=== PATIENT | female | born 2000 | race Caucasian/White ===

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

== ENCOUNTER 2021-10-18 09:33 | Emergency (ER) | payer OTHER ==
--- OUTSIDE RECORDS SUMMARY | 2021-10-18 09:39 | XMS REPORT | Continuity of Care Document ---
:[address] [facility] t Address [address] [place] [id number] Care Team Providers Name Role Phone Blas MEJIA Primary Care Physician Unavailable DENIS Attending Clinician Unavailable Denis HUMPHRIES Attending Clinician Clive Georges MD Attending Clinician CLIVE GEORGES Attending Clinician Unavailable Nurse, General Surgery Attending Clinician Unavailable Pob, Lab Main Attending Clinician Unavailable Doctor Unassigned, Name Attending Clinician Unavailable Brooke YANG Attending Clinician [facility] Attending Clinician Unavailable Jasiel Mcdonald Attending Clinician Yaneth RICHARDSON Attending Clinician Unavailable CLIVE GEORGES Admitting Clinician Unavailable BROOKE Admitting Clinician Unavailable Clive Georges MD Admitting Clinician Brooke YANG Admitting Clinician Yaneth RICHARDSON Admitting Clinician Unavailable Payers Payer Name Policy Type Policy Number Effective Date Expiration Date Yaneth MARIE [employer] [id number] 2019 HEALTH 00:00:00 Advance Directives Directive Decision Effective Termination Comments Source Date Date Healthcare Agents on N/A [facility] FileNameRelationshipHealthcare [facility] Agent Medical RelationshipCommunicationEn[facility] healthcare [phone] (Home) Problems Condition Condition Condition Status Onset Resolution Last Treating Co mments Source Name Details Category Date Date Treatment Clinician Date Mild Mild Disease Active Univers pre-eclamp pre-eclamp 4-22 it y of taye in taye in 00:00: [place] third third 00 Medical trimester trimester Bran ch Liveborn Liveborn Disease Active 2020-0 Unive rs infant, of , of 4-22 it y of berrios berrios 00:00: [place] , , 00 Me dical born in born in [facility] hospital by vaginal by vaginal delivery delivery Encounter Encounter Disease Active 2020-0 Uni vers for for 4-21 ity of elective elective 00:00: [place] induction induction 00 [facility] of labor of labor [place] Morbid Morbid Disease Active 2020-0 Univers obesity obesity 4-13 ity of with body with body 00:00: [place] mass index mass index 00 Me dical of of Branch 40.0-49.9 40.0-49.9 Excessive Excessive Disease Active 2020-0 Uni vers weight weight 4-07 ity of gain gain 00:00: [place] during during 00 Medical Bran ch in third in third trimester trimester Obesity Obesity Disease Active 2020-0 Univers (BMI (BMI 1-27 ity of 30-39.9) 30-39.9) 00:00: [place] 00 [facility] 27 weeks 27 weeks Disease Active 2020-0 Unive rs gestation gestation 1-27 ity of of of 00:00: [place] 00 [facility] 37 weeks 37 weeks Disease Active 2020-0 Unive rs gestation gestation 1-27 ity of of of 00:00: [place] 00 [facility] Needs flu Needs flu Disease Active 2020-0 Uni vers shot shot 1-27 ity of 00:00: [place] 00 [facility] Need for Need for Disease Active 2020-0 Unive rs Tdap Tdap 1-27 ity of vaccinatio vaccinatio 00:[place] 00 [facility] 38 weeks 38 weeks Disease Active 2020-0 Unive rs gestation gestation 1-27 ity of of of 00:00: [place] 00 [facility] 39 weeks 39 weeks Disease Active 2020-0 Unive rs gestation gestation 1-27 ity of of of 00:00: [place] 00 [facility] 40 weeks 40 weeks Disease Active 2020-0 Unive rs gestation gestation 1-27 ity of of of 00:00: [place] 00 [facility] 32 weeks 32 weeks Disease Active 2020-0 Unive rs gestation gestation 1-27 ity of of of 00:00: [place] 00 [facility] History of History of Disease Active Overview : Univers depression depression 10-16 Reports i ty of 00:00: resolved 00 , stopped Medical meds in Branch 2017 Supervisio Supervisio Disease Active U nivers n of n of 10-16 ity of high-risk high-risk 00:00: Melia pelayo 00 [facility] with with Branch insufficie insufficie nt nt care care Over Over Disease Active 2017-10 Univers weight weight 0-09 ity of 00:00: [place] 00 [facility] Allergies, Adverse Reactions, Alerts Allergy Allergy Status Severity Reaction(s) Onset Inactive Treating Comm ents Source Name Type Date Date Clinician NO KNOWN Drug Active Univers ALLERGIE Class ity of [facility] Social History Social Habit Start Date Stop Date Quantity Comments Source ASSERTION 2019-05-06 [facility] 00:00:00 [facility] Exposure to Not sure [facility] SARS-CoV-2 (event) Medica l [place] Sex Assigned At [facility] Medical Branch Alcohol intake 2020-02-02 2020-02-02 [facility] 00:00:00 00:00:00 [facility] Smoking Status Start Date Stop Date Source Never smoker [facility] acute hospital Medications Ordered Filled Start Stop Current Ordering Indication Dosage Frequency Signature Comments Components Source Medication Medication Date Date Medication? Clinician (SIG) Name Name norgestimat Yes [id number] 1{tbl} Take 1 Univers e-ethinyl 6-11 tablet by ity o f estradiol 00:00: mouth [place] 0.25-35 00 daily. Medical mg-mcg per Branch tablet 2019- Yes [id number] 1{tbl} Take 1 Univers vitamin 4-23 102 tablet by ity of w/FA tablet 00:00: mouth [place] 00 daily. Medical Branch docusate 2019- Yes [id number] 240mg Take 1 Univers calcium 240 4-23 102 capsule by it y of mg capsule 00:00: mouth [place] 00 daily as Medical needed for Branch Constipati on. ferrous 2020-0 Yes [id number] 325mg Take 1 Univers sulfate 325 4-23 102 tablet by ity of mg (65 mg 00:00: mouth 2 [place] iron) 00 (two) Medical tablet times Branch daily. ibuprofen 2020- Yes [id number] 600mg Take 1 Univers 600 mg 4-23 102 tablet by ity of tablet 00:00: mouth [place] 00 every 6 Medical (six) Branch hours as needed for Pain (scale 1-3) or Pain (scale 4-6) (Pain). Take with food or milk. 2020-0 Yes [id number] 1{tbl} Take 1 Univers vitamin 4-23 102 tablet by ity of w/FA tablet 00:00: mouth [place] 00 daily. Medical Branch docusate 2020-0 Yes [id number] 240mg Take 1 Univers calcium 240 4-23 102 capsule by it y of mg capsule 00:00: mouth [place] 00 daily as Medical needed for Branch Constipati on. ferrous 2020-0 Yes [id number] 325mg Take 1 Univers sulfate 325 4-23 102 tablet by ity of mg (65 mg 00:00: mouth 2 [place] iron) 00 (two) Medical tablet times Branch daily. ibuprofen 2019-0 Yes [id number] 600mg Take 1 Univers 600 mg 4-23 102 tablet by ity of tablet 00:00: mouth [place] 00 every 6 Medical (six) Branch hours as needed for Pain (scale 1-3) or Pain (scale 4-6) (Pain). Take with food or milk. 2019-0 Yes [id number] 1{tbl} Take 1 Univers vitamin 4-23 102 tablet by ity of w/FA tablet 00:00: mouth [place] 00 daily. Medical Branch docusate 2019-0 Yes [id number] 240mg Take 1 Univers calcium 240 4-23 102 capsule by it y of mg capsule 00:00: mouth [place] 00 daily as Medical needed for Branch Constipati on. ferrous 2020-0 Yes [id number] 325mg Take 1 Univers sulfate 325 4-23 102 tablet by ity of mg (65 mg 00:00: mouth 2 [place] iron) 00 (two) Medical tablet times Branch daily. ibuprofen 2020-0 Yes [id number] 600mg Take 1 Univers 600 mg 4-23 102 tablet by ity of tablet 00:00: mouth [place] 00 every 6 Medical (six) Branch hours as needed for Pain (scale 1-3) or Pain (scale 4-6) (Pain). Take with food or milk. 2019-0 Yes [id number] 1{tbl} Take 1 Univers vitamin 4-23 102 tablet by ity of w/FA tablet 00:00: mouth [place] 00 daily. Medical Branch docusate 2020-0 Yes [id number] 240mg Take 1 Univers calcium 240 4-23 102 capsule by it y of mg capsule 00:00: mouth [place] 00 daily as Medical needed for Branch Constipati on. ferrous 2020-0 Yes [id number] 325mg Take 1 Univers sulfate 325 4-23 102 tablet by ity of mg (65 mg 00:00: mouth 2 [place] iron) 00 (two) Medical tablet times Branch daily. ibuprofen 2020-0 Yes [id number] 600mg Take 1 Univers 600 mg 4-23 102 tablet by ity of tablet 00:00: mouth [place] 00 every 6 Medical (six) Branch hours as needed for Pain (scale 1-3) or Pain (scale 4-6) (Pain). Take with food or milk. rho(D) 2019-0 Yes 300ug 300 mcg, Univer s immune 4- Intramuscu ity of globulin 21:14: lar, ONCE, [place] (RHOGAM) 13 For 1 Medical syringe 300 dose, Branch mcg Conditiona l, Routine ondansetron 2019-0 Yes 4mg 4 mg, Slow Univers (ZOFRAN - IV Push, ity of (PF)) 21:14: Q8HPRN, [place] injection 4 09 Starting Medi karen mg Wed Branch 01/28/20 at 1614, Until Discontinu ed, Routine, Nausea and Vomiting (N/V) simethicone 2020-0 Yes 160mg 160 mg, Un andreas (GAS RELIEF - Oral, ity of (SIMETHICON 21:14: PC+HSPRN, [place] E)) 09 Starting Medical chewable Wed Branch tablet 160 01/28/20 at mg 1614, Until Discontinu ed, Routine, Gas magnesium 2020-0 Yes 30mL 30 mL, Univer s hydroxide -22 Oral, ity of (MILK OF 21:14: QDAILYPRN, [place] MAGNESIA) 09 Starting Medica l 400 mg/5 mL Wed Branch suspension 01/28/20 at 30 mL 1614, Until Discontinu ed, Routine, Constipati on HYDROcodone 2020-0 Yes 1{tbl} 1 tablet, Univers -acetaminop - Oral, ity of hen (NORCO 21:14: Q6HPRN, [place] 5) 5-325 mg 08 Starting Medi karen tablet 1 Wed Branch tablet 01/28/20 at 1614, Until Discontinu ed, Routine, Pain (scale 7-10) ibuprofen 2020-0 Yes 600mg 600 mg, Univ ers (IBU) - Oral, ity of tablet 600 21:14: Q6HPRN, [place] mg 08 Starting Medical Wed Branch 01/28/20 at 1614, Until Discontinu ed, Routine, Pain (scale 4-6) acetaminoph 2020-0 Yes 650mg 650 mg, Un andreas en 01-27 Oral, ity of (TYLENOL) 21:14: Q6HPRN, [place] tablet 650 08 Starting Medic al mg Wed Branch 01/28/20 at 1614, Until Discontinu ed, Routine, Pain (scale 1-3) diphenhydrA 2020-0 Yes 25mg 25 mg, Univ ers MINE 01-27 Oral, ity of (BENADRYL) 21:14: Q6HPRN, [place] tablet 25 08 Starting Medica l mg Wed Branch 01/28/20 at 1614, Until Discontinu ed, Routine, Sleep, Itching docusate 2020-0 Yes 240mg 240 mg, Unive rs calcium 01-27 Oral, ity of (SURFAK) 21:14: QDAILYPRN, [place] capsule 240 08 Starting Medi karen mg Wed Branch 01/28/20 at 1614, Until Discontinu ed, Routine, Constipati on benzocaine- 2020-0 Yes Topical, Un andre[place] menthol 01-27 PRN, ity of (DERMOPLAST 21:14: [place] 20-0.5 % 08 Sun Medical topical 01/28/20 at Branch spray 1614, Until Discontinu ed, Routine, Perineum discomfort tranexamic 2020-0 2020- No 1000mg 1,000 mg, Univers acid 01-27 IV ity of (CYKLOKAPRO 19:30: 21:14 Piggyback, [place] N) 1,000 mg 00 :14 ONCE, 1 Medic al in NaCl dose, Wed Branch 0.9% (NS) 01/28/20 at 100 mL 1430, 100 piggyback mL diphenoxyla 2020-0 2020- No 1{tbl} 1 tablet, Univers te-atropine 01-27 Oral, ity of (LOMOTIL) 19:00: 18:03 ONCE, 1 [place] 2.5-0.025 00 :00 dose, Wed Medic al mg per 01/28/20 at Branch tablet 1 1400, tablet Routine lactated 2020-0 2020- No 1000mL at 999 Univ ers ringers IV 01-27-22 mL/hr, ity of infusion 18:00: 17:55 1,000 mL, [place] 1,000 mL 00 :00 IV Medical Infusion, Branch ONCE, 1 dose, 01/28/20 at 1300, STAT oxytocin 2020-0 2020- No at 125 Univer s (PITOCIN) 01-27-22 mL/hr, IV ity of 40 Units in 17:45: 17:45 Infusion, [place] lactated 00 :00 ONCE, 1 Medical ringers dose, Sun Branch 1,000 mL IV 01/28/20 at infusion 1245, Routine carboprost 2020-0 2020- No 250ug 250 mcg, U nivers (HEMABATE) 01-27 Intramuscu it y of injection 17:30: 17:26 lar, ONCE, [place] 250 mcg 00 :00 1 dose, Medical Wed Branch 01/28/20 at 1230, Routine oxytocin 2020-0 2020- No at 999 Univer s (PITOCIN) 01-27-22 mL/hr, IV ity of 40 Units in 17:25: 22:00 Infusion, [place] lactated 00 :08 CONTINUOUS Medic al ringers , Starting Branch 1,000 mL IV Wed infusion 01/28/20 at 1230, Until Sun01/28/20 at 1700, Routine LR 1000 mL 2020-0 2020- No 4mU/min at 12 Un andreas + oxytocin 01-26-22 mL/hr, IV ity of 20 units IV 17:45: 21:14 Infusion, [place] Solution 00 :14 CONTINUOUS Medic al , Starting Branch 01/27/20 at 1245, Until Sun01/28/20 at 1614, ANDREA D5W-LR IV 2020-0 2020- No 1000mL at 125 Uni vers infusion 01-26 04-22 mL/hr, IV ity o f 1,000 mL 17:45: 21:14 Infusion, [place] 00 :14 CONTINUOUS Medical , Starting Branch 01/27/20 at 1245, Until Sun01/28/20 at 1614, Routine FENTanyl PF 2019- 2020- No 100ug 100 mcg, Univers (SUBLIMAZE 01-26 Slow IV ity o f (PF)) 17:39: 21:14 Push, [place] injection 27 :14 Q1HPRN, Medical 100 mcg Starting Branch 01/27/20 at 1239, Until Sun01/28/20 at 1614, Routine, contractio n pain without an epidural and SVE < 8 cm and Cat I strip proMETHazin 2020- No 25mg 25 mg, IV Univers e 01-26 Piggyback, ity of (PHENERGAN) 17:39: 21:14 Q6HPRN, [place] 25 mg in 27 :14 Starting Medical NaCl 0.9% Tue Branch (NS) 50 mL 01/27/20 at piggyback 1239, Until Sun01/28/20 at 1614, 50 mL lactated 2019- No 500mL at 999 Unive rs ringers IV 01-26 mL/hr, 500 it y of infusion 17:39: 21:14 mL, IV [place] 500 mL 27 :14 Infusion, Medical PRN - SEE Branch INSTRUCTIO NS, Starting 01/27/20 at 1239, Until Sun01/28/20 at 1614, Routine PNV 67-iron 2019-0 Yes [id number] 1{each} Take 1 Univers ps-folate - 09 Each by ity of no.1-dha 00:00: mouth [place] (VITAFOL 00 daily. Medical ULTRA) 29 Branch mg iron- 1 mg-200 mg Cap PNV 67-iron 2020-0 2020- No [id number] 1{each} Take 1 Univers ps-folate -06 08- 09 Each by ity of no.1-dha 00:00: 00:00 mouth [place] (VITAFOL 00 :00 daily. Medical ULTRA) 29 Branch mg iron- 1 mg-200 mg Cap [id number]- 2019-1 Yes [id number] 1{tbl} Take 1 Univers iron 2-27 tablet by ity of fum-FA-om3- 00:00: mouth [place] dha 00 daily. Medical ( Branch PLUS DHA) 27 mg iron-1 mg -312 mg-250 mg Cmpk [id number]- 2019-1 Yes [id number] 1{tbl} Take 1 Univers iron 2-27 tablet by ity of fum-FA-om3- 00:00: mouth [place] dha 00 daily. Medical ( Branch PLUS DHA) 27 mg iron-1 mg -312 mg-250 mg Cmpk proMETHazin 2018-10 Yes [id number] 25mg Take 1 Univers e 25 mg 2-27 tablet by ity of tablet 00:00: mouth [place] 00 every 6 Medical (six) Branch hours as needed for Nausea and Vomiting (N/V). 2018-10 Yes [id number] 1{tbl} Take 1 Univers iron 2-27 tablet by ity of fum-FA-om3- 00:00: mouth [place] dha 00 daily. Medical ( Branch PLUS DHA) 27 mg iron-1 mg -312 mg-250 mg Cmpk 2018-10 Yes [id number] 1{tbl} Take 1 Univers iron 2-27 tablet by ity of fum-FA-om3- 00:00: mouth [place] dha 00 daily. Medical ( Branch PLUS DHA) 27 mg iron-1 mg -312 mg-250 mg Cmpk 2018-10 Yes [id number] 1{tbl} Take 1 Univers iron 2-27 tablet by ity of fum-FA-om3- 00:00: mouth [place] dha 00 daily. Medical ( Branch PLUS DHA) 27 mg iron-1 mg -312 mg-250 mg Cmpk 2018-10 Yes [id number] 1{tbl} Take 1 Univers iron 2-27 tablet by ity of fum-FA-om3- 00:00: mouth [place] dha 00 daily. Medical ( Branch PLUS DHA) 27 mg iron-1 mg -312 mg-250 mg Cmpk 2018-10 Yes [id number] 1{tbl} Take 1 Univers iron 2-27 tablet by ity of fum-FA-om3- 00:00: mouth [place] dha 00 daily. Medical ( Branch PLUS DHA) 27 mg iron-1 mg -312 mg-250 mg Cmpk 2018-10 Yes [id number] 1{tbl} Take 1 Univers iron 2-27 tablet by ity of fum-FA-om3- 00:00: mouth [place] dha 00 daily. Medical ( Branch PLUS DHA) 27 mg iron-1 mg -312 mg-250 mg Cmpk 2018-10 Yes [id number] 1{tbl} Take 1 Univers iron 2-27 tablet by ity of fum-FA-om3- 00:00: mouth [place] dha 00 daily. Medical ( Branch PLUS DHA) 27 mg iron-1 mg -312 mg-250 mg Cmpk 2018-10 Yes [id number] 1{tbl} Take 1 Univers iron 2-27 tablet by ity of fum-FA-om3- 00:00: mouth [place] dha 00 daily. Medical ( Branch PLUS DHA) 27 mg iron-1 mg -312 mg-250 mg Cmpk 2018-10 Yes [id number] 1{tbl} Take 1 Univers iron 2-27 tablet by ity of fum-FA-om3- 00:00: mouth [place] dha 00 daily. Medical ( Branch PLUS DHA) 27 mg iron-1 mg -312 mg-250 mg Cmpk 2018-10 Yes [id number] 1{tbl} Take 1 Univers iron 2-27 tablet by ity of fum-FA-om3- 00:00: mouth [place] dha 00 daily. Medical ( Branch PLUS DHA) 27 mg iron-1 mg -312 mg-250 mg Cmpk 2018-10 Yes [id number] 1{tbl} Take 1 Univers iron 2-27 tablet by ity of fum-FA-om3- 00:00: mouth [place] dha 00 daily. Medical ( Branch PLUS DHA) 27 mg iron-1 mg -312 mg-250 mg Cmpk 2018-10 Yes [id number] 1{tbl} Take 1 Univers iron 2-27 tablet by ity of fum-FA-om3- 00:00: mouth [place] dha 00 daily. Medical ( Branch PLUS DHA) 27 mg iron-1 mg -312 mg-250 mg Cmpk 2018-10 Yes [id number] 1{tbl} Take 1 Univers iron 2-27 tablet by ity of fum-FA-om3- 00:00: mouth [place] dha 00 daily. Medical ( Branch PLUS DHA) 27 mg iron-1 mg -312 mg-250 mg Cmpk 2018-10 Yes [id number] 1{tbl} Take 1 Univers iron 2-27 tablet by ity of fum-FA-om3- 00:00: mouth [place] dha 00 daily. Medical ( Branch PLUS DHA) 27 mg iron-1 mg -312 mg-250 mg Cmpk 2018-10 Yes [id number] 1{tbl} Take 1 Univers iron 2-27 tablet by ity of fum-FA-om3- 00:00: mouth [place] dha 00 daily. Medical ( Branch PLUS DHA) 27 mg iron-1 mg -312 mg-250 mg Cmpk 2018-10 Yes [id number] 1{tbl} Take 1 Univers iron 2-27 tablet by ity of fum-FA-om3- 00:00: mouth [place] dha 00 daily. Medical ( Branch PLUS DHA) 27 mg iron-1 mg -312 mg-250 mg Cmpk 2018-10 Yes [id number] 1{tbl} Take 1 Univers iron 2-27 tablet by ity of fum-FA-om3- 00:00: mouth [place] dha 00 daily. Medical ( Branch PLUS DHA) 27 mg iron-1 mg -312 mg-250 mg Cmpk 2018-10 Yes [id number] 1{tbl} Take 1 Univers iron 2-27 tablet by ity of fum-FA-om3- 00:00: mouth [place] dha 00 daily. Medical ( Branch PLUS DHA) 27 mg iron-1 mg -312 mg-250 mg Cmpk 2018-10 Yes [id number] 1{tbl} Take 1 Univers iron 2-27 tablet by ity of fum-FA-om3- 00:00: mouth [place] dha 00 daily. Medical ( Branch PLUS DHA) 27 mg iron-1 mg -312 mg-250 mg Cmpk [id number] 2020- No [id number] 1{tbl} Take 1 Univers iron 2-27 04-23 tablet by ity of fum-FA-om3- 00:00: 00:00 [place] dha 00 :00 daily. Medical ( Branch PLUS DHA) 27 mg iron-1 mg -312 mg-250 mg Cmpk proMETHazin 2018-10 2020- No [id number] 25mg Take 1 Univers e 25 mg 2-27 01-27 tablet by ity of tablet 00:00: 00:00 mouth [place] 00 :00 every 6 Medical (six) Branch hours as needed for Nausea and Vomiting (N/V). norgestimat Yes [id number] 1{tbl} Take 1 Univers e-ethinyl 5-06 tablet by ity o f estradiol 00:00: mouth [place] 0.25-35 00 daily. Medical mg-mcg per Branch tablet norgestimat 2020- No [id number] 1{tbl} Take 1 Univers e-ethinyl 5-06 -27 tablet by ity of estradiol 00:00: 00:00 mouth [place] 0.25-35 00 :00 daily. Medical mg-mcg per Branch tablet Immunizations Ordered Filled Immunization Date Status Comments [facility] e Immunization Name Name TDAP (ADACEL) 2019-11-03 Completed University of VACCINE 00:00:00 [facility] Influenza Virus 2019-11-03 Completed Universit y of Vaccine Quad .5 mL 00:00:00 [place] Medical IM 6+ MO Branch TDAP (ADACEL) 2019-11-03 Completed University of VACCINE 00:00:00 [facility] Influenza Virus 2019-11-03 Completed Universit y of Vaccine Quad .5 mL 00:00:00 [facility] IM 6+ MO Branch TDAP (ADACEL) 2019-11-03 Completed University of VACCINE 00:00:00 [facility] Influenza Virus 2019-11-03 Completed Universit y of Vaccine Quad .5 mL 00:00:00 [place] Medical IM 6+ MO Branch TDAP (ADACEL) 2019-11-03 Completed University of VACCINE 00:00:00 [facility] Influenza Virus 2019-11-03 Completed Universit y of Vaccine Quad .5 mL 00:00:00 [place] Medical IM 6+ MO Branch TDAP (ADACEL) 2019-11-03 Completed University of VACCINE 00:00:00 [facility] Influenza Virus 2019-11-03 Completed Universit y of Vaccine Quad .5 mL 00:00:00 [place] Medical IM 6+ MO Branch TDAP (ADACEL) 2019-11-03 Completed University of VACCINE 00:00:00 [facility] Influenza Virus 2019-11-03 Completed Universit y of Vaccine Quad .5 mL 00:00:00 [place] Medical IM 6+ MO Branch TDAP (ADACEL) 2019-11-03 Completed University of VACCINE 00:00:00 [facility] Influenza Virus 2019-11-03 Completed Universit y of Vaccine Quad .5 mL 00:00:00 [place] Medical IM 6+ MO Branch TDAP (ADACEL) 2019-11-03 Completed University of VACCINE 00:00:00 [facility] Influenza Virus 2019-11-03 Completed Universit y of Vaccine Quad .5 mL 00:00:00 [place] Medical IM 6+ MO Branch TDAP (ADACEL) 2019-11-03 Completed University of VACCINE 00:00:00 [facility] Influenza Virus 2019-11-03 Completed Universit y of Vaccine Quad .5 mL 00:00:00 [place] Medical IM 6+ MO Branch TDAP (ADACEL) 2019-11-03 Completed University of VACCINE 00:00:00 [facility] Influenza Virus 2019-11-03 Completed Universit y of Vaccine Quad .5 mL 00:00:00 [place] Medical IM 6+ MO Branch TDAP (ADACEL) 2019-11-03 Completed University of VACCINE 00:00:00 [facility] Influenza Virus 2019-11-03 Completed Universit y of Vaccine Quad .5 mL 00:00:00 [place] Medical IM 6+ MO Branch TDAP (ADACEL) 2019-11-03 Completed University of VACCINE 00:00:00 [facility] Influenza Virus 2019-11-03 Completed Universit y of Vaccine Quad .5 mL 00:00:00 [place] Medical IM 6+ MO Branch TDAP (ADACEL) 2019-11-03 Completed University of VACCINE 00:00:00 [facility] Influenza Virus 2019-11-03 Completed Universit y of Vaccine Quad .5 mL 00:00:00 [place] Medical IM 6+ MO Branch TDAP (ADACEL) 2019-11-03 Completed University of VACCINE 00:00:00 [facility] Influenza Virus 2019-11-03 Completed Universit y of Vaccine Quad .5 mL 00:00:00 [place] Medical IM 6+ MO Branch TDAP (ADACEL) 2019-11-03 Completed University of VACCINE 00:00:00 [facility] Influenza Virus 2019-11-03 Completed Universit y of Vaccine Quad .5 mL 00:00:00 [place] Medical IM 6+ MO Branch TDAP (ADACEL) 2019-11-03 Completed University of VACCINE 00:00:00 [facility] Influenza Virus 2019-11-03 Completed Universit y of Vaccine Quad .5 mL 00:00:00 [place] Medical IM 6+ MO Branch TDAP (ADACEL) 2019-11-03 Completed University of VACCINE 00:00:00 [facility] Influenza Virus 2019-11-03 Completed Universit y of Vaccine Quad .5 mL 00:00:00 [place] Medical IM 6+ MO Branch TDAP (ADACEL) 2019-11-03 Completed University of VACCINE 00:00:00 [facility] Influenza Virus 2019-11-03 Completed Universit y of Vaccine Quad .5 mL 00:00:00 [place] Medical IM 6+ MO Branch TDAP (ADACEL) 2019-11-03 Completed University of VACCINE 00:00:00 [facility] Influenza Virus 2019-11-03 Completed Universit y of Vaccine Quad .5 mL 00:00:00 [place] Medical IM 6+ MO Branch TDAP (ADACEL) 2019-11-03 Completed University of VACCINE 00:00:00 [facility] Influenza Virus 2019-11-03 Completed Universit y of Vaccine Quad .5 mL 00:00:00 [place] Medical 6+ MO Branch TDAP (ADACEL) 2019-11-03 Completed University of VACCINE 00:00:00 [facility] Influenza Virus 2019-11-03 Completed Universit y of Vaccine Quad .5 mL 00:00:00 [place] Medical IM 6+ MO Branch TDAP (ADACEL) 2019-11-03 Completed University of VACCINE 00:00:00 [facility] Influenza Virus 2019-11-03 Completed Universit y of Vaccine Quad .5 mL 00:00:00 [facility] IM 6+ MO Branch TDAP (ADACEL) 2019-11-03 Completed University of VACCINE 00:00:00 [facility] Influenza Virus 2019-11-03 Completed Universit y of Vaccine Quad .5 mL 00:00:00 [place] Medical IM 6+ MO Branch TDAP (ADACEL) 2019-11-03 Completed University of VACCINE 00:00:00 [facility] Influenza Virus 2019-11-03 Completed Universit y of Vaccine Quad .5 mL 00:00:00 [place] Medical IM 6+ MO Branch Vital Signs Vital Name Observation Time Observation Value Comments Source Systolic blood 2020-01-29 17:00:00 128 mm[Hg] Univer sity of pressure [facility] Diastolic blood 2020-01-29 17:00:00 69 mm[Hg] Unive rsity of pressure [facility] Heart rate 2020-01-29 17:00:00 71 /min Universi ty of [facility] Body temperature 2020-01-29 17:00:00 37.06 Nina Univ ersity of [place] [facility] Respiratory rate 2020-01-29 17:00:00 18 /min Univ ersity of [place] [facility] Oxygen saturation in 2020-01-29 12:30:00 100 /min University of Arterial blood by [facility] Pulse oximetry Branch Body height 2020-01-27 17:43:00 160 cm [facility] Body weight 2020-01-27 17:43:00 105.416 kg [facility] BMI 2020-01-27 17:43:00 41.17 kg/m2 [facility] Systolic blood 2020-01-29 17:00:00 128 mm[Hg] [facility] Diastolic blood 2020-01-29 17:00:00 69 mm[Hg] [facility] Heart rate 2020-01-29 17:00:00 71 /min [facility] Body temperature 2020-01-29 17:00:00 37.06 Nina [facility] Respiratory rate 2020-01-29 17:00:00 18 /min [facility] Oxygen saturation in 2020-01-29 12:30:00 100 /min [facility] of Arterial blood by [facility] Pulse oximetry Branch Body height 2020-01-27 17:43:00 160 cm [facility] Body weight 2020-01-27 17:43:00 105.416 kg [facility] BMI 2020-01-27 17:43:00 41.17 kg/m2 [facility] Systolic blood 2020-01-26 21:07:00 123 mm[Hg] [facility] Diastolic blood 2020-01-26 21:07:00 73 mm[Hg] [facility] Heart rate 2020-01-26 21:07:00 94 /min [facility] Body temperature 2020-01-26 21:07:00 36.72 Nina [facility] Respiratory rate 2020-01-26 21:07:00 18 /min [facility] Body height 2020-01-26 21:07:00 160 cm [facility] Body weight 2020-01-26 21:07:00 105.96 kg [facility] BMI 2020-01-26 21:07:00 41.38 kg/m2 [facility] Systolic blood 2020-01-26 21:07:00 123 mm[Hg] [facility] Diastolic blood 2020-01-26 21:07:00 73 mm[Hg] [facility] Heart rate 2020-01-26 21:07:00 94 /min [facility] Body temperature 2020-01-26 21:07:00 36.72 Nina [facility] Respiratory rate 2020-01-26 21:07:00 18 /min [facility] Body height 2020-01-26 21:07:00 160 cm [facility] Body weight 2020-01-26 21:07:00 105.96 kg [facility] BMI 2020-01-26 21:07:00 41.38 kg/m2 [facility] Body temperature 2020-01-26 15:07:00 36.67 Nina [facility] Body temperature 2020-01-26 15:07:00 36.67 Nina [facility] Systolic blood 2020-01-19 19:57:00 117 mm[Hg] [facility] Diastolic blood 2020-01-19 19:57:00 75 mm[Hg] [facility] Heart rate 2020-01-19 19:57:00 97 /min [facility] Body temperature 2020-01-19 19:57:00 36.83 Nina [facility] Respiratory rate 2020-01-19 19:57:00 18 /min [facility] Body height 2020-01-19 19:57:00 160 cm [facility] Body weight 2020-01-19 19:57:00 105.053 kg [facility] BMI 2020-01-19 19:57:00 41.03 kg/m2 [facility] Systolic blood 2020-01-12 21:16:00 122 mm[Hg] [facility] Diastolic blood 2020-01-12 21:16:00 73 mm[Hg] [facility] Heart rate 2020-01-12 21:16:00 89 /min [facility] Body temperature 2020-01-12 21:16:00 36.89 Nina [facility] Respiratory rate 2020-01-12 21:16:00 18 /min [facility] Body height 2020-01-12 21:16:00 160 cm [facility] Body weight 2020-01-12 21:16:00 104.327 kg [facility] BMI 2020-01-12 21:16:00 40.74 kg/m2 [facility] Systolic blood 2019-12-29 19:41:00 118 mm[Hg] [facility] Diastolic blood 2019-12-29 19:41:00 70 mm[Hg] [facility] Heart rate 2019-12-29 19:41:00 79 /min [facility] Body temperature 2019-12-29 19:41:00 36.5 Nina [facility] Respiratory rate 2019-12-29 19:41:00 18 /min [facility] Body height 2019-12-29 19:41:00 160 cm [facility] Body weight 2019-12-29 19:41:00 100.699 kg [facility] BMI 2019-12-29 19:41:00 39.33 kg/m2 [facility] Systolic blood 2019-12-20 04:43:00 105 mm[Hg] [facility] Diastolic blood 2019-12-20 04:43:00 49 mm[Hg] [facility] Heart rate 2019-12-20 04:43:00 86 /min [facility] Respiratory rate 2019-12-20 04:43:00 18 /min [facility] Body temperature 2019-12-20 02:45:00 36.72 Nina [facility] Body height 2019-12-20 02:45:00 160 cm [facility] Body weight 2019-12-20 02:45:00 99.973 kg [facility] BMI 2019-12-20 02:45:00 39.04 kg/m2 [facility] ty of [facility] Oxygen saturation in 2019-12-20 02:45:00 100 /min University Arterial blood by [facility] Pulse oximetry Branch Systolic blood 2019-12-15 18:04:00 126 mm[Hg] [facility] [place] [facility] [place] Diastolic blood 2019-12-15 18:04:00 73 mm[Hg] Unive rsity of pressure [facility] Heart rate 2019-12-15 18:04:00 86 /min [facility] ty of [facility] Body temperature 2019-12-15 18:04:00 36.28 Nina Univ ersity of [facility] Respiratory rate 2019-12-15 18:04:00 18 /min Univ ersity of [facility] Body height 2019-12-15 18:04:00 160 cm [facility] Body weight 2019-12-15 18:04:00 99.791 kg [facility] [place] [facility] BMI 2019-12-15 18:04:00 38.97 kg/m2 [facility] ty of [facility] Systolic blood 2019-12-04 21:20:00 121 mm[Hg] Univer sity of pressure [facility] Diastolic blood 2019-12-04 21:20:00 77 mm[Hg] Unive rsity of pressure [facility] Heart rate 2019-12-04 21:20:00 78 /min [facility] [place] [facility] Body temperature 2019-12-04 21:20:00 36.39 Nina [facility] of [facility] Respiratory rate 2019-12-04 21:20:00 18 /min Univ ersity of [facility] Body height 2019-12-04 21:20:00 160 cm [facility] Body weight 2019-12-04 21:20:00 98.249 kg [facility] BMI 2019-12-04 21:20:00 38.37 kg/m2 [facility] of [facility] Systolic blood 2019-12-01 20:17:00 123 mm[Hg] [facility] [place] [facility] Diastolic blood 2019-12-01 20:17:00 69 mm[Hg] Unive rsity of pressure [facility] Heart rate 2019-12-01 20:17:00 87 /min [facility]i ty of [facility] Body temperature 2019-12-01 20:17:00 36.78 Nina [facility] [address] of [facility] Respiratory rate 2019-12-01 20:17:00 16 /min [facility] ersity of [facility] Body height 2019-12-01 20:17:00 160 cm [facility] [place] [facility] [place] Body weight 2019-12-01 20:17:00 97[address] [facility] BMI 2019-12-01 20:17:00 37.94 kg/m2 [facility] of [facility] Systolic blood 2019-11-03 21:07:00 127 mm[Hg] Univer sity of pressure [facility] Diastolic blood 2019-11-03 21:07:00 75 mm[Hg] [facility] Heart rate 2019-11-03 21:07:00 89 /min [facility]i ty of [facility] Body temperature 2019-11-03 21:07:00 36.72 Nina [facility] 2019-11-03 21:07:00 18 /min [facility] Body height 2019-11-03 21:07:00 160 cm [facility] [place] [facility] [place] Body weight 2019-11-03 21:07:[address] [facility] BMI 2019-11-03 21:07:00 36.31 kg/m2 Universi ty [facility] Procedures Procedure Date / Time Performing Clinician Source Performed CBC WITH DIFFERENTIAL 2020-01-29 09:23:00 Estrella Georges [facility] VENOUS CORD GAS 2020-01-28 17:29:00 Estrella Georges [facility] URINALYSIS 2020-01-28 16:03:00 Estrella Georges [facility] PROTEIN CREAT RATIO 2020-01-28 16:03:00 Estrella Georges [facility] URINE RANDOM [facility] SGOT (ASPARTATE AMINO 2020-01-28 14:38:00 Estrella Georges [facility] TRANSFER) Medical Branch CREATININE 2020-01-28 14:38:00 Estrella Georges [facility] ALANINE AMINO 2020-01-28 14:38:00 Estrella Georges [facility] TRANSFERASE(SGPT Medical Branch LACTATE DEHYDROGENASE 2020-01-28 14:38:00 Georges, Estrella [facility] URIC ACID 2020-01-28 14:38:00 Georges [facility] CBC WITH DIFFERENTIAL 2020-01-28 14:38:00 Georges [facility] CBC WITH DIFFERENTIAL 2020-01-27 18:11:00 Georges [facility] HEPATITIS B SURFACE 2020-01-27 18:11:00 José Manuel [facility] ANTIGEN [facility] ADC OR BRISE[place] ONLY - 2020-01-27 18:10:00 José Manuel [facility] RPR [facility] HIV 1/2 AG-AB WITH 2020-01-27 18:10:00 José Manuel [facility] REFLEX [facility] HB ABO GROUPING 2020-01-27 18:05:00 José Manuel [facility] RHO (D) IMMUNE GLOBULIN 2020-01-27 18:05:00 José Manuel [facility] CONSENT/REFUSAL FOR 2020-01-26 21:30:22 Doctor Unassigned, No [facility] DIAGNOSIS AND TREATMENT [facility] Medical [place] ASSIGNMENT OF BENEFITS 2020-01-26 21:30:04 Doctor Unassigned, No [facility] POCT URINALYSIS W/O 2020-01-26 00:00:00 Estrella Georges [facility] SPECIFIC GRAVITY Medical [place] POCT URINALYSIS W/O 2020-01-19 00:00:00 Estrella Georges [facility] SPECIFIC GRAVITY Medical [place] POCT URINALYSIS W/O 2020-01-12 00:00:00 José Manuel [facility] SPECIFIC GRAVITY [facility] ASSIGNMENT OF BENEFITS 2019-12-29 20:21:01 Doctor Unassigned, No [facility] Name [facility] >14 WEEKS US 2019-12-29 20:00:43 Marti Barrios [facility] POCT URINALYSIS W/O 2019-12-29 00:00:00 Marti Barrios [facility] SPECIFIC GRAVITY Medical [place] URINALYSIS 2019-12-20 04:32:00 Andrés Cox [facility] ADC CLC OR LCC ONLY - 2019-12-20 03:04:00 [facility] 2019-12-20 02:06:12 Doctor Unassigned, No [facility] PATIENT QUESTIONNAIRE 2019-12-15 05:01:00 Doctor Unassigned, No [facility] POCT URINALYSIS W/O 2019-12-15 00:00:00 Estrella Georges [facility] SPECIFIC [facility] NON-STRESS TEST 2019-12-05 17:15:01 Estrella Georges [facility] POCT URINALYSIS W/O 2019-12-01 00:00:00 Marti Barrios [facility] TDAP (ADACEL) 2019-11-03 21:22:49 Estrella Georges [place] IMMUNIZATION [facility] FLU VACC ([phone]), 6+ 2019-11-03 21:22:49 Estrella Georges [facility] MONTHS, IM, QUAD Medical Branch Encounters Start End Encounter Admission Attending Care Care Encounter Source Date/Time Date/Time Type Type Clinicians Facility Department ID 2021-08-04 Outpatient P [facility] [id number] Univers 18:30:32 [facility] 2021-08-04 Outpatient P [facility] [id number] Univers 14:22:04 [facility] 2021-08-04 Outpatient P [facility] [id number] Univers 14:21:08 [facility] 2020-09-17 2020-09-17 Outpatient Jasiel BARRIOS [facility] [id number] Univers 10:00:00 10:00:00 MARTI [id number] [facility] 2020-09-17 2020-09-17 Outpatient Jasiel BARRIOS [facility] [id number] Univers 10:00:00 10:00:00 MARTI [facility] 2020-03-18 2020-03-18 Outpatient Jasiel BARRIOS [facility] [id number] Univers 11:15:00 11:15:00 MARTI [id number] [facility] 2020-03-18 2020-03-18 Outpatient Jasiel BARRIOS [facility] [id number] Univers 11:15:00 11:15:00 MARTI [facility] 2020-03-18 2020-03-18 Telemedici Ankurdipaknova, [facility] [id number] Univers 10:27:08 10:42:08 ne Visit Marti Malik [id number] [id number] [phone] [place] dic[address] 2020-03-18 2020-03-18 Telemedici Ankurdeborah, [facility] 1.2.840.114 [id number] 10:27:08 10:42:08 ne Visit Marti Malik [id number] [place] [id number] Professio [phone] [address] 2020-02-26 2020-02-26 Telemedici Ankurdeborah, [facility] 1.2.840.114 [id number] Univers 15:15:00 15:30:00 ne Visit Marti Malik [id number] [id number] [phone] [place] dic[address] 2020-02-26 2020-02-26 Telemedici Ankurdeborah, [facility] 1.2.840.114 [id number] 15:15:00 15:30:00 ne Visit Marti Malik [id number] [place] [id number] Professio [phone] [address] 2020-02-26 2020-02-26 Outpatient R DENIS [facility] [id number] Univers 15:15:00 15:15:00 MARTI [id number] [facility] 2020-02-26 2020-02-26 Outpatient R DENIS [facility] [id number] Univers 15:15:00 15:15:00 MARTI [facility] 2020-02-02 2020-02-02 Outpatient R [facility] [id number] Univers 10:00:00 10:00:00 [id number] [facility] 2020-02-02 2020-02-02 Outpatient R [facility] [id number] Univers 10:00:00 10:00:[address] [facility] 2020-01-30 2020-01-30 Telephone Estrella Georges [facility] 1.2.840.114 [id number] [facility] 00:00:00 00:00:00 Cam [place] [id number] [id number] [phone] [place] dical [address] 2020-01-30 2020-01-30 Telephone Estrella Georges [facility] 1.2.840.114 [id number] 00:00:00 00:00:00 Cam Laurel [id number] [place] [id number] Professio [phone] [address] 2020-01-27 2020-01-29 [facility] Estrella Georges [facility] 1.2.840.114 [id number] [facility] 12:31:28 16:10:00 Encounter Cam Laurel [id number] [id number] [phone] [address] 2020-01-27 2020-01-29 [facility] Estrella Georges [facility] 1.2.840.114 [id number] 12:31:28 16:10:00 Encounter Cam Laurel [id number] [place] [id number] [place] [phone] [facility] 2020-01-26 2020-01-26 Routine Estrella Georges [facility] 1.2.604.046 [id number] [facility] 15:58:45 16:18:52 Cam Laurel [id number] ity of [id number] [phone] [place] dical [address] 2020-01-26 2020-01-26 Routine Estrella Georges [facility] 1.2.959.886 [id number] 15:58:45 16:18:52 Cam Laurel [id number] Visit [place] [id number] Professio [phone] [address] 2020-01-26 2020-01-26 Outpatient R ESTRELLA GEORGES [facility] [id number] [facility] 16:00:00 16:00:[address] [facility] 2020-01-26 2020-01-26 Nurse Nurse, [facility] General Surgery [facility] 1.2.840.114 [id number] Univers 09:58:06 11:22:28 Visit Estrella Georges Clive [place] [id number] [id number] [phone] [address] 2020-01-26 2020-01-26 Nurse Nurse, [facility] 1.2.840.114 [id number] 09:58:06 11:22:28 Visit General Laurel [id number] Surgery [place] [id number] Professio [phone] [address] 2020-01-26 2020-01-26 Outpatient R [facility] [id number] Univers 10:00:00 10:00:[id number] [facility] 2020-01-26 2020-01-26 Telephone Estrella Georges [facility] 1.2.840.114 [id number] Univers 00:00:00 00:00:00 Cam Laurel [id number] [id number] [phone] [address] 2020-01-26 2020-01-26 Telephone Estrella Georges [facility] 1.2.840.114 [id number] 00:00:00 00:00:00 Cam Laurel [id number] [place] [id number] Professio [phone] [address] 2020-01-19 2020-01-19 Routine José Manuel Estrella [facility] 1.2.625.441 [id number] Univers 14:40:25 15:11:13 Cam Laurel [id number] ity of [id number] [phone] [address] 2020-01-19 2020-01-19 Outpatient R JOSÉ MANUEL ESTRELLA [facility] [id number] Univers 15:00:00 15:00:00 [id number] [facility] 2020-01-19 2020-01-19 Outpatient R JOSÉ MANUEL ESTRELLA [facility] [id number] Univers 15:00:00 15:00:[address] [facility] 2020-01-12 2020-01-12 Routine José Manuel [facility] 1.2.511.847 [id number] Univers 16:07:32 16:31:59 Clive Malik [id number] [place]y [id number] [phone] [place] dical nal [address] [facility] 2020-01-12 2020-01-12 Outpatient R JOSÉ MANUEL [facility] [id number] Univers 16:15:00 16:15:00 ity [facility] 2020-01-12 2020-01-12 Outpatient R JOSÉ MANUEL [facility] [id number] Univers 16:15:00 16:15:00 ity [facility] 2019-12-29 2019-12-29 Therapy Coordinator Kevin Alvarado Lab Main [facility] 1.2.8 40.114 [id number] Univers 15:19:34 15:34:34 Visit Marti Barrios [id number] [place] [phone] [place] [facility] 2019-12-29 2019-12-29 [facility] [id number] Univers 14:31:15 15:03:42 Marti Malik [id number] [place]y of [id number] [phone] [place] dical nal [address] [facility] 2019-12-29 2019-12-29 Outpatient R DENIS [facility] [id number] Univers 14:45:00 14:45:00 MARTI [id number] itmiguel [facility] 2019-12-29 2019-12-29 Outpatient R DENIS [facility] [id number] Univers 14:45:00 14:45:00 MARTI itmiguel [facility] 2019-12-29 2019-12-29 Telephone GeorgesEstrella [facility] 1.2.840.114 [id number] Univers 00:00:00 00:00:00 Clive Malik 350.1.13.10 [place] [phone] [address] 2019-12-29 2019-12-29 Orders Doctor MAGDALENO 1.2.840.114 [id number] Univers 00:00:00 00:00:00 Only Unassigned, TEJAS [id number] ity of [facility] 4.2.7.2.686 Wei as [phone] [address] 2019-12-19 2019-12-20 [facility] 1.2.840.114 [id number] Univers 21:08:00 01:15:00 Encounter Andrés Malik [id number] [place] [phone] [place] [id number] [place] 2019-12-19 2019-12-19 Orders Doctor MAGDALENO 1.2.840.114 [id number] Univers 00:00:00 00:00:00 Only Unassigned, TEJAS [id number] ity of [facility] 4.2.7.2.686 Wei as [phone] [address] 2019-12-15 2019-12-15 Routine José Manuel [facility] [id number] Univers 12:56:23 13:11:23 Clive Malik 350.1.13.10 ity of [place] [phone] [address] 2019-12-15 2019-12-15 Outpatient R ESTRELLA GEORGES [facility] [id number] Univers 13:00:00 13:00:[id number] [facility] 2019-12-15 2019-12-15 Outpatient R JOSÉ MANUEL [facility] [id number] Univers 13:00:00 13:00:[address] [facility] 2019-12-15 2019-12-15 Orders Doctor MAGDALENO 1.2.840.114 [id number] Univers 00:00:00 00:00:00 Only Unassigned, TEJAS [id number] ity of [facility] 4.2.7.2.686 Wei as [phone] [address] 2019-12-04 2019-12-04 Routine Room, [facility] 1.2.840.1 [id number] Univers 15:05:05 16:03:39 Marti Barrios [id number] ity of [id number] [phone] [place] dical [address] 2019-12-04 2019-12-04 Outpatient R [facility] [id number] Univers 15:00:00 15:00:[id number] [facility] 2019-12-04 2019-12-04 Outpatient R DENIS [facility] [id number] Univers 15:00:00 15:00:00 MARTI rizo [facility] 2019-12-04 2019-12-04 Telephone Estrella Georges [facility] 1.2.840.114 [id number] Univers 00:00:00 00:00:00 Clive Malik 350.1.13.10 i [place] [phone] [place] dical [address] 2019-12-01 2019-12-01 Routine Denis [facility] 1.2.068.775 [id number] Univers 13:47:10 14:29:35 Marti Malik [id number] ity of [place] [phone] T[place] dical nal [address] [place] [address] 2019-12-01 2019-12-01 [facility] [id number] Univers 14:00:00 14:00:00 MARTI rizo [facility] 2019-11-10 2019-11-10 Telephone Estrella Georges [facility] 1.2.840.114 [id number] Univers 00:00:00 00:00:00 Cam [place]ena [id number] i [place] [phone] [place] dical nal [address] [facility] 2019-11-07 2019-11-07 Telephone Denis [facility] 1.2.840.114 [id number] Univers 00:00:00 00:00:00 Marti Malik [id number] i [place] [phone] [place] dical nal [address] [facility] 2019-11-03 2019-11-03 Initial Estrella Georges [facility] 1.2.246.714 [id number] Univers 14:04:14 15:36:55 Cam [place] [id number] ity of [place] [phone] Tx dicpa nal [address] [place] [address] 2019-10-23 2019-10-23 Abstract Eddie [facility] 1.2.840.114 [id number] Univers 00:00:00 00:00:00 Fabian Weathers 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 [id number] ity of REGIONAL 4.2.7.2.686 Wei as MATERNAL [phone] Med ical & CHILD [address] [place] [address] 2019-10-03 2019-10-03 Emergency X DYLAN [facility] ERT [id number] Univers 13:36:00 19:03:00 ERIN ity [facility] Results Test Description Test Time Test Comments Results Result Comments Source CBC WITH DIFFERENTIAL 2020-01-29 09:51:00 Test Item Value Reference Range Interpretation Comme nts WBC (test code = 6690-2) See_Comment H [A utomated message] The system which ge nerated this result transmit natividad reference range: 4.30 - 1 1.10 10*3/?L. The reference r rhonda was not used to interpr et this result as normal/abnor mal. RBC (test code = 789-8) See_Comment L [Au tomated message] The system which ge nerated this result transmit natividad reference range: 3.93 - 5 .25 10*6/?L. The reference r rhonda was not used to interpr et this result as normal/abnor mal. HGB (test code = 718-7) 9.5 g/dL 11.6-15 L HCT (test code = 4544-3) 28.1 % 35.7-45.2 L MCV (test code = 787-2) 88.1 fL 80.6-95.5 MCH (test code = 785-6) 29.8 pg 25.9-32.8 MCHC (test code = 786-4) 33.8 g/dL 31.6-35.1 RDW-SD (test code = 22703-3) 42.6 fL 39-49.9 RDW-CV (test code = 788-0) 13.2 % 12-15.5 PLT (test code = 777-3) See_Comment [Au tomated message] The system which ge nerated this result transmit natividad reference range: 166 - 35 8 10*3/?L. The reference range was not used to interpret th is result as normal/abnormal . MPV (test code = 57349-5) 9.7 fL 9.5-12.9 NRBC/100 WBC (test code = See_Comment [ Automated message] The 8191043020) system which ge nerated this result transmit natividad reference range: 0.0 - 10 .0 /100 WBCs. The reference r rhonda was not used to interpr et this result as normal/abnor mal. NRBC x10^3 (test code = <0.01 See_Comment [Au tomated message] The 4849235905) system which ge nerated this result transmit natividad reference range: 10*3/?L. The reference range was not u sed to interpret this result as normal/abnormal . GRAN MAT (NEUT) % (test code 75.2 % = 770-8) IMM GRAN % (test code = 0.90 % 3697588416) LYMPH % (test code = 736-9) 14.4 % MONO % (test code = 5905-5) 8.1 % EOS % (test code = 713-8) 1.0 % BASO % (test code = 706-2) 0.4 % GRAN MAT x10^3(ANC) (test 11.45 10*3/uL 1.88-7.09 H code = 4577327214) IMM GRAN x10^3 (test code = 0.14 10*3/uL 0-0.06 H 1764320817) LYMPH x10^3 (test code = 2.20 10*3/uL 1.32-3.29 731-0) MONO x10^3 (test code = 1.24 10*3/uL 0.33-0.92 H 742-7) EOS x10^3 (test code = 0.16 10*3/uL 0.03-0.39 711-2) BASO x10^3 (test code = 0.06 10*3/uL 0.01-0.07 704-7) Lab Interpretation (test Abnormal code = 28264-1) [facility] IMMUNE [id number] 21:38:56 Test Item Value Reference Range Interpretation Comments RHIG CANDIDATE? No- see comment Patient i s not a (test code = candidate for R hIg- 5055) Patient is Rh Positive.Perfor med at [facility] Laboratory Services - [facility] Blood [address] [place], [place] [address]Toll Free: [phone] A No. [id number] [facility] CenterArterial Cord [id number] 17:42:00 Test Item Value Reference Range Interpretation Comments BASE EXCESS, CORD mEq/L (test code = 4268992649) AC PH, CORD (BEAKER) 7.18-7.38 (test code = 7992622397) PC02, CORD (test code See_Comment [Auto mated message] The = 6909700954) system which g enerated this result transmit natividad reference range : 32 - 66 mmHg. The refer ence range was not used to interpret this result as normal/abnormal . PO2, CORD (test code See_Comment [Autom ated message] The = 2551525268) system which g enerated this result transmit natividad reference range : 10 - 30 mmHg. The refer ence range was not used to interpret this result as normal/abnormal . BICARBONATE, CORD See_Comment [Automate d message] The (test code = system which ge nerated this 1000837582) result transmit natividad reference range : 17 - 27 mEq/L. The refe rence range was not used to interpret this result as normal/abnormal . [facility] [id number] 17:39:00 Test Item Value Reference Range Interpretation Comments VENOUS BASE EXCESS, CORD mEq/L (test code = 3955105183) VENOUS PH, CORD (test 7.25-7.45 H code = 3562401514) VENOUS PC02, CORD (test See_Comment L [Au tomated message] code = 7581490233) The syste m which generated this result transmitted ref erence range: 27 - 49 mmHg. The reference r rhonda was not used to interpret this result as normal/abnor mal. VENOUS PO2, CORD (test See_Comment [Aut omated message] code = 1725331479) The syste m which generated this result transmitted ref erence range: 17 - 41 mmHg. The reference r rhonda was not used to interpret this result as normal/abnor mal. VENOUS BICARBONATE, CORD See_Comment [A utomated message] (test code = 1787364527) The system which generated this result transmitted ref erence range: 12 - 29 mEq/L. The reference r rhonda was not used to interpret this result as normal/abnor mal. Lab Interpretation (test Abnormal code = 90648-7) [facility] CenterUrinalysis2020-04-22 16:37:00 Test Item Value Reference Range Interpretation Comments APPEARANCE (test code = Clear Clear 0581785115) COLOR (test code = Yellow Yellow 4909902339) PH (test code = 4.8-8.0 0770383201) SP GRAVITY (test code = 1.003-1.030 2495528853) GLU U QUAL (test code = Normal Normal 4142783957) BLOOD (test code = Negative Negative 6350385623) KETONES (test code = Negative Negative 8603128962) PROTEIN (test code = Negative Negative 2887-8) UROBILIN (test code = Normal Normal 7821341388) BILIRUBIN (test code = Negative Negative 0226459758) NITRITE (test code = Negative Negative 8977861733) LEUK JASON (test code = Negative Negative 0107887258) RBC/HPF (test code = See_Comment [Autom ated message] 9213151141) The system whic h generated this result transmitted ref erence range: 0 - 3 HP F. The reference range was not used to int erpret this result as normal/abnormal . WBC/HPF (test code = See_Comment [Autom ated message] 0514749415) The system [employer] generated this result transmitted ref erence range: 0 - 5 HP F. The reference range was not used to int erpret this result as normal/abnormal . BACTERIA (test code = Negative Negative 8907006439) MUCOUS (test code = Slight Negative LPF A 4300425367) SQ EPITH (test code = <1 HPF 4495243613) Lab Interpretation (test Abnormal code = 51333-9) [facility] CenterProtein CREAT Ratio Urine [id number] 16:24:00 Test Item Value Reference Range Interpretation Comments T. PROT U (test code = 2888-6) 12 mg/dL CREAT U (test code = 7517040056) 27.6 mg/dL Protein/Creatinine Ratio Urine 0.0-2.0 (test code = 9801821803) [facility] CenterUric Acid [id number] 15:03:00 Test Item Value Reference Range Interpretation Comments URIC ACID (test code = 9072452927) 2.5 mg/dL 2.9-6 L Lab Interpretation (test code = Abnormal 67824-7) [facility] CenterSerum [id number] 15:03:00 Test Item Value Reference Range Interpretation Comments CREATININE (test code = 0.36 mg/dL 0.5-1.04 L 1078153071) eGFR Calculation mL/min/1.73m2 (Non-) (test code = 9055063936) eGFR Calculation mL/min/1.73m2 () (test code = 6388547765) NEVIN (test code = NEVIN) Association of Glomerular Filtration Rate (GFR) and Staging of Kidney Disease* + --+ --+ ------+| GFR (mL/min/1.73 m2) ?| With Kidney Damage ?| ?Without Kidney Damage+ --------+ --------+ +| ?>90 ?| ?Stage one ?| ? Normal ?+ ---+ ---+ -------+| ?60-89 ?| ?Stage two ?| ? Decreased GFR ? + --+ --+ ------+| ?30-59 ?| ?Stage three ?| ? Stage three ? + --+ --+ ------+| ?15-29 ?| ?Stage four ? | ? Stage four ?+ ---+ ---+ -------+| ?<15 (or dialysis) ? ?| ?Stage five ? | ? Stage five ?+ ---+ ---+ -------+ *Each stage assumes the associated GFR level has been in effect for at least three months. ?Stages 1 to 5, with or without kidney disease, indicate chronic kidney disease. Notes: Determination of stages one and two (with eGFR >59mL/min/1.73 m2) requires estimation of kidney damage for at least three months as defined by structural or functional abnormalities of the kidney, manifested by either:Pathological abnormalities or Markers of kidney damage (including abnormalities in the composition of the blood or urine or abnormalities in imaging tests). Lab Interpretation Abnormal (test code = 69189-5) [facility] CenterSGOT (Asparate Amino Transfer)2020-01-28 15:03:00 Test Item Value Reference Range Interpretation Comments AST(SGOT) (test code = 7433314174) 18 U/L 13-40 Lab Interpretation (test code = Normal 54636-6) [facility] CenterAlanine Amino Transferase (SGPT)2020-01-28 15:03:00 Test Item Value Reference Range Interpretation Comments ALTv (test code = 1742-6) 13 U/L 5-35 Lab Interpretation (test code = Normal 67945-1) [facility] CenterLactate Ybtebhrcxpbvo8166-54-62 15:02:00 Test Item Value Reference Range Interpretation Comments LDH (test code = 0430511425) 335 U/L 300-600 Lab Interpretation (test code = Normal 27876-1) [facility] CenterCB WITH [id number] 14:52:00 Test Item Value Reference Range Interpretation Comments WBC (test code = See_Comment H [Automated 4790-2) message] The system which generated this result transmit natividad reference range : 4.30 - 11.10 10*3/?L. The reference range was not used to interpret this result as normal/abnormal . RBC (test code = See_Comment L [Automated 189-8) message] The system which generated this result transmit natividad reference range : 3.93 - 5.25 10*6/?L. The reference range was not used to interpret this result as normal/abnormal . HGB (test code = 11.6 g/dL 11.6-15 718-7) HCT (test code = 33.7 % 35.7-45.2 L 4544-3) MCV (test code = 86.9 fL 80.6-95.5 787-2) MCH (test code = 29.9 pg 25.9-32.8 785-6) MCHC (test code = 34.4 g/dL 31.6-35.1 786-4) RDW-SD (test code = 41.1 fL 39-49.9 72318-7) RDW-CV (test code = 13.2 % 12-15.5 788-0) PLT (test code = See_Comment [Automated 777-3) message] The system which generated this result transmit natividad reference range : 166 - 358 10*3/ ?L. The reference range was not u sed to interpret th is result as normal/abnormal . MPV (test code = 9.2 fL 9.5-12.9 L 96508-6) NRBC/100 WBC (test See_Comment [Automat ed code = 5726885524) message] The system which generated this result transmit natividad reference range : 0.0 - 10.0 /100 WBCs. The reference range was not used to interpret this result as normal/abnormal . NRBC x10^3 (test code <0.01 See_Comment [Auto mated = 6872712739) message] The system which generated this result transmit natividad reference range : 10*3/?L. The reference range was not used to interpret this result as normal/abnormal . GRAN MAT (NEUT) % 87.6 % (test code = 770-8) IMM GRAN % (test code 0.30 % = 3124462837) LYMPH % (test code = 6.2 % 736-9) MONO % (test code = 5.4 % 5905-5) EOS % (test code = 0.2 % 713-8) BASO % (test code = 0.3 % 706-2) GRAN MAT x10^3(ANC) 13.38 10*3/uL 1.88-7.09 H (test code = 9990174162) IMM GRAN x10^3 (test 0.05 10*3/uL 0-0.06 code = 3774453856) LYMPH x10^3 (test code 0.94 10*3/uL 1.32-3.29 L = 731-0) MONO x10^3 (test code 0.82 10*3/uL 0.33-0.92 = 742-7) EOS x10^3 (test code = 0.03 10*3/uL 0.03-0.39 711-2) BASO x10^3 (test code 0.05 10*3/uL 0.01-0.07 = 704-7) Lab Interpretation Abnormal (test code = 92421-2) [facility] CenterAD OR [facility] ONLY - [id number] 07:41:00 Test Item Value Reference Range Interpretation Comments RPR (Qualitative) (test code = Nonreactive Nonreactive 41999-0) Lab Interpretation (test code = Normal 64089-3) [facility] CenterHepatitis B Surface [id number] 02:39:00 Test Item Value Reference Range Interpretation Comments HBsAg Semi-Quantitative (test code = Negative Negative 5195-3) [facility] CenterHIV 1/2 AG-AB WITH [id number] 20:01:00 Test Item Value Reference Range Interpretation Comments HIV Negative Negative Semi-quantitative (test code = 10067-7) NEVIN (test code = Non-reactive for HIV-1 NEVIN) antigen and HIV-1/HIV-2 antibodies. ?No laboratory evidence of HIV infection. ?Repeat in 2-4 weeks if acute HIV infection is suspected. [facility] CenterType and Screen - ONCE [id number] 19:57:15 Test Item Value Reference Range Interpretation Comments ABO & RH (test code O Positive Performe d at [facility] = 20) Laboratory Serv [facility] [place] [phone] Free: [phone] A No. [id number] IAT (test code = Negative Performed a t [facility] 1185) Laboratory Serv [facility] [place] [address]Uigr Free: [phone] A No. [id number] [facility] WITH [id number] 18:27:00 Test Item Value Reference Range Interpretation Comments WBC (test code = See_Comment [Automated 6690-2) message] The sy stem which generated this result transmitted reference range : 4.30 - 11.10 10*3/?L. The reference range was not used to interpret this result as normal/abnormal . RBC (test code = See_Comment L [Automated 789-8) message] The sy stem which generated this result transmitted reference range : 3.93 - 5.25 10*6/?L. The reference range was not used to interpret this result as normal/abnormal . HGB (test code = 11.6 g/dL 11.6-15 718-7) HCT (test code = 33.3 % 35.7-45.2 L 4544-3) MCV (test code = 86.0 fL 80.6-95.5 787-2) MCH (test code = 30.0 pg 25.9-32.8 785-6) MCHC (test code = 34.8 g/dL 31.6-35.1 786-4) RDW-SD (test code = 40.4 fL 39-49.9 07670-9) RDW-CV (test code = 13.1 % 12-15.5 788-0) PLT (test code = See_Comment [Automated 777-3) message] The sy stem which generated this result transmitted reference range : 166 - 358 10*3/ ?L. The reference r rhonda was not used to interpret this result as normal/abnormal . MPV (test code = 9.3 fL 9.5-12.9 L 15083-4) NRBC/100 WBC (test See_Comment [Automat ed code = 0560599533) message] The system which generated this result transmitted reference range : 0.0 - 10.0 /100 WBCs. The refer ence range was not u sed to interpret th is result as normal/abnormal . NRBC x10^3 (test code <0.01 See_Comment [Auto mated = 5985661056) message] The s ystem which generated this result transmitted reference range : 10*3/?L. The reference range was not used to interpret this result as normal/abnormal . GRAN MAT (NEUT) % 77.6 % (test code = 770-8) IMM GRAN % (test code 0.70 % = 0459977283) LYMPH % (test code = 13.7 % 736-9) MONO % (test code = 6.2 % 5905-5) EOS % (test code = 1.4 % 713-8) BASO % (test code = 0.4 % 706-2) GRAN MAT x10^3(ANC) 7.98 10*3/uL 1.88-7.09 H (test code = 2871161438) IMM GRAN x10^3 (test 0.07 10*3/uL 0-0.06 H code = 8680999983) LYMPH x10^3 (test code 1.41 10*3/uL 1.32-3.29 = 731-0) MONO x10^3 (test code 0.64 10*3/uL 0.33-0.92 = 742-7) EOS x10^3 (test code = 0.14 10*3/uL 0.03-0.39 711-2) BASO x10^3 (test code 0.04 10*3/uL 0.01-0.07 = 704-7) Lab Interpretation Abnormal (test code = 82948-5) [facility] URINALYSIS W/O SPECIFIC [id number] 21:09:00 Test Item Value Reference Range Interpretation Comments POCT PH U (test code = 3254) n/a 5-8 POCT U LEUK EST (test code = 3263) n/a Negative - Negative POCT U NIT (test code = 3262) n/a Negative - Negative POCT U PROT (test code = 3259) neg Negative - Negative POCT U GLU (test code = 3256) neg Negative - Negative POCT U KETONE (test code = 3258) n/a Negative - Negative POCT U BLD (test code = 3257) n/a Negative - Negative Lab Interpretation (test code = Normal 28175-1) [facility] URINALYSIS W/O SPECIFIC [id number] 19:59:00 Test Item Value Reference Range Interpretation Comments POCT PH U (test code = 3254) n/a 5-8 POCT U LEUK EST (test code = 3263) n/a Negative - Negative POCT U NIT (test code = 3262) n/a Negative - Negative POCT U PROT (test code = 3259) trace Negative - Negative POCT U GLU (test code = 3256) neg Negative - Negative POCT U KETONE (test code = 3258) n/a Negative - Negative POCT U BLD (test code = 3257) n/a Negative - Negative Lab Interpretation (test code = Normal 90961-6) [facility] URINALYSIS W/O SPECIFIC [id number] 22:00:00 Test Item Value Reference Range Interpretation Comments POCT PH U (test code = 3254) na 5-8 POCT U LEUK EST (test code = 3263) na Negative - Negative POCT U NIT (test code = 3262) na Negative - Negative POCT U PROT (test code = 3259) neg Negative - Negative POCT U GLU (test code = 3256) neg Negative - Negative POCT U KETONE (test code = 3258) na Negative - Negative POCT U BLD (test code = 3257) na Negative - Negative [facility]>14 WEEKS US [id number] 20:26:53Cephalic [facility]Un[facility]/O SPECIFIC [id number] 20:02:00 Test Item Value Reference Range Interpretation Comments POCT PH U (test code = 3254) N/A 5-8 POCT U LEUK EST (test code = N/A Negative - Negative 3263) POCT U NIT (test code = 3262) N/A Negative - Negative POCT U PROT (test code = 3259) Negative Negative - Negative POCT U GLU (test code = 3256) Negative Negative - Negative POCT U KETONE (test code = 3258) N/A Negative - Negative POCT U BLD (test code = 3257) N/A Negative - Negative [facility] CenterURINALYSIS2020-03-14 05:43:00 Test Item Value Reference Range Interpretation Comments APPEARANCE (test code = Hazy Clear A 4029336137) COLOR (test code = Yellow Yellow 4552104114) PH (test code = 4.8-8.0 8582234421) SP GRAVITY (test code = 1.003-1.030 7774115018) GLU U QUAL (test code = Normal Normal 7764879489) BLOOD (test code = Negative Negative 2587794629) KETONES (test code = Negative Negative 1805593861) PROTEIN (test code = Negative Negative 2887-8) UROBILIN (test code = Normal Normal 4171547246) BILIRUBIN (test code = Negative Negative 0225089629) NITRITE (test code = Negative Negative 7912173726) LEUK JASON (test code = 500/uL Negative A 7801537205) RBC/HPF (test code = See_Comment [Autom ated message] 2399569964) The system [employer] generated this result transmitted ref erence range: 0 - 3 HP F. The reference range was not used to int erpret this result as normal/abnormal . WBC/HPF (test code = See_Comment [Autom ated message] 6240528760) The system [employer] generated this result transmitted ref erence range: 0 - 5 HP F. The reference range was not used to int erpret this result as normal/abnormal . BACTERIA (test code = Negative Negative 6591959898) MUCOUS (test code = Slight Negative LPF A 4325176092) SQ EPITH (test code = HPF 1024740486) Lab Interpretation (test Abnormal code = 82343-8) [facility] CLC OR [facility] ONLY - WET [id number] 04:00:00 Test Item Value Reference Range Interpretation Comments Wet Prep (test code = Few WBC per high-power 5093153320) field [facility] URINALYSIS W/O SPECIFIC [id number] 18:09:00 Test Item Value Reference Range Interpretation Comments POCT PH U (test code = 3254) n/a 5-8 POCT U LEUK EST (test code = 3263) n/a Negative - Negative POCT U NIT (test code = 3262) n/a Negative - Negative POCT U PROT (test code = 3259) neg Negative - Negative POCT U GLU (test code = 3256) neg Negative - Negative POCT U KETONE (test code = 3258) n/a Negative - Negative POCT U BLD (test code = 3257) n/a Negative - Negative Lab Interpretation (test code = Normal 01600-7) [facility] CenterFETAL NON-STRESS [id number] 17:15:48 Reactive and reassuringToco with irritability Esrtella Georges MD ?12/05/2019 ?11:15 AMUnUniversity [facility] of [facility] PasoPOCT URINALYSIS W/O SPECIFIC GRAVITY 2019-12-01 20:23:00 Test Item Value Reference Range Interpretation Comments POCT PH U (test code = 3254) n/a 5-8 POCT U LEUK EST (test code = n/a Negative - Negative 3263) POCT U NIT (test code = 3262) n/a Negative - Negative POCT U PROT (test code = 3259) negative Negative - Negative POCT U GLU (test code = 3256) negative Negative - Negative POCT U KETONE (test code = 3258) n/a Negative - Negative POCT U BLD (test code = 3257) n/a Negative - Negative [facility]"
--- NOTE | 2021-10-18 11:58 | RAD REPORT ---
EXAM DESCRIPTION: RAD - Ankle Left 3 View - 10/18/2021 11:44 am CLINICAL HISTORY: PAIN COMPARISON: RAD LEFT ANKLE W COMPARISON dated 09/20/2014 FINDINGS: Moderate soft tissue swelling is seen adjacent to the lateral malleolus. Prominent bony pr otuberances seen involving the navicular along the dorsal aspect of the midfoot. Slight lucency is se en within this bony protuberance which could indicate fracture. Elsewhere, no evidence of fracture or dislocation seen.
--- NOTE | 2021-10-18 13:04 | EDPHYS ---
Physician Documentation [facility] Name: Nomi Lang Age: 21 yrs Sex: Female : 2000 Arrival Date: 10/18/2021 Time: 09:36 Bed Waiting Private MD: ED Physician Chandler Mckeon HPI: 10/18 12:58 This 21 yrs old Female presents to ER via Ambulatory with complaints of Ankle Injury. rn 12:58 The patient presents with an injury, pain. The complaints affect the left ankle. Onset: rn The symptoms/episode began/occurred last night. Context: The problem was sustained at home, resulted from a mis-step by the patient, The mechanism of injury involved inversion of the affected ankle. The patient can fully bear weight on the affected extremity. the patient is able to ambulate. Associated signs and symptoms: Pertinent positives: swelling, Pertinent negatives: weakness. Modifying factors: The symptoms are alleviated by Walking boot. Severity of symptoms: At their worst the symptoms were mild, in the emergency department the symptoms are unchanged. The patient has experienced similar episodes in the past. The patient has not recently seen a physician. Patient reports rolled her ankle twice last night. Has previous fracture of that ankle or foot. Placed herself in a walking boot and helps but is ambulatory. No other injuries. States only pain to left lateral malleolus. No pain to foot. 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 - Social history:: Smoking status: Patient denies any tobacco usage or history of. - Family history:: not pertinent. - Hospitalizations: : No recent hospitalization is reported. ROS: 12:58 Constitutional: Negative for fever, chills, and weight loss, MS/Extremity: Positive for rn injury and swelling to left lateral ankle Exam: 12:58 Constitutional: Ambulatory to triage in a walking boot MS/ Extremity: Pulses equal, rn no cyanosis. Neurovascular intact. No tenderness of the foot. No tenderness over navicular bone. Mild swelling left lateral malleolus without any open wounds. Vital Signs: 10:08 BP 142 / 94; Pulse 109; Resp 17; Temp 98.6; Pulse Ox 100% ; Weight 102.97 kg; Height 5 ll1 ft. 3 in. (160.02 cm); Pain 9/10; 13:05 BP 138 / 98; Pulse 94; Resp 16; ll1 10:08 Body Mass Index 40.21 (102.97 kg, 160.02 cm) ll1 MDM: 10:15 Patient medically screened. rn 12:58 Differential diagnosis: fracture, sprain. Data reviewed: vital signs, nurses notes, rn radiologic studies, plain films, and as a result, I will discharge patient. Counseling: I had a detailed discussion with the patient and/or guardian regarding: the historical points, exam findings, and any diagnostic results supporting the discharge/admit diagnosis, radiology results, the need for outpatient follow up, to return to the emergency department if symptoms worsen or persist or if there are any questions or concerns that arise at home. Special discussion: I discussed with the patient/guardian in detail that at this point there is no indication for admission to the hospital. It is understood, however, that if the symptoms persist or worsen the patient needs to return immediately for re-evaluation. Further emergent ED testing is not indicated at this point in time. I discussed with the patient/guardian in detail the need to arrange with the PCP or specialist further outpatient testing, MRI. ED course: X-ray showed lucency of the navicular bone, patient states that it is an old fracture and she is known about it. No tenderness in that region. Will DC home with sprain.. 10/18 10:09 Order name: XRAY Ankle LEFT 3 view; Complete Time: 12:02 rn Administered Medications: No medications were administered Disposition Summary: 10/18/21 13:03 Discharge Ordered Location: Home rn Problem: new rn Symptoms: have improved rn Condition: Stable rn Diagnosis - Sprain of unspecified ligament of left ankle rn Followup: rn - With: Private Physician - When: As needed - Reason: Recheck today's complaints, Re-evaluation by your physician Discharge Instructions: - Discharge Summary Sheet rn - Ankle Sprain rn Forms: - Medication Reconciliation Form rn - Thank You Letter rn - Antibiotic government program manager - Prescription Opioid Use rn Signatures: Dispatcher [employer] EDMS Mckeon, Chandler, MD MD rn Jose Enrique, Lynsay, RN RN ll1
--- NOTE | 2021-10-18 13:04 | ER ---
Nurse's Notes [facility] Name: Nomi Lang Age: 21 yrs Sex: Female : 2000 Arrival Date: 10/18/2021 Time: 09:36 Bed Waiting Private MD: Diagnosis: Sprain of unspecified ligament of left ankle Presentation: 10/18 10:04 Ebola Screen: Patient denies travel to an Ebola-affected area in the 21 days before ll1 illness onset. 10:04 Acuity: PB 4 ll1 10:04 Method Of Arrival: Ambulatory ll1 10:08 Chief complaint: Patient states: L ankle injury, rolled twice since last night. States ll1 it was dislocated, and she put it back in place both times. Coronavirus screen: Vaccine status: Patient reports receiving the 2nd dose of the covid vaccine. Client denies travel out of the [place] in the last 14 days. At this time, the client does not indicate any symptoms associated with coronavirus-19. Initial Sepsis Screen: Does the patient meet any 2 criteria? HR > 90 bpm. No. Patient's initial sepsis screen is negative. Does the patient have a suspected source of infection? Yes: Bone or joint infection. Risk Assessment: Do you want to hurt yourself or someone else? Patient reports no desire to harm self or others. Onset of symptoms was October 17, 2021. Triage Assessment: 10:09 General: Appears in no apparent distress. Behavior is calm, cooperative, appropriate ll1 for age. Pain: Complains of pain in L ankle Quality of pain is described as aching. Neuro: No deficits noted. Cardiovascular: No deficits noted. Respiratory: No deficits noted. Musculoskeletal: Circulation, motion, and sensation intact. Capillary refill < 3 seconds, Reports pain in left leg. Injury Description: fall. 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 - Social history:: Smoking status: Patient denies any tobacco usage or history of. - Family history:: not pertinent. - Hospitalizations: : No recent hospitalization is reported. Screenin:06 Abuse screen: Denies threats or abuse. Nutritional screening: No deficits noted. ll1 Tuberculosis screening: No symptoms or risk factors identified. Fall Risk Gait- Weak (10 pts.). Total Card Fall Scale indicates No Risk (0-24 pts). Assessment: 11:05 Reassessment: No changes from previously documented assessment. Patient and/or family ll1 updated on plan of care and expected duration. Pain level reassessed. Patient is alert, oriented x 3, equal unlabored respirations, skin warm/dry/pink. 12:05 Reassessment: No changes from previously documented assessment. Patient and/or family ll1 updated on plan of care and expected duration. Pain level reassessed. Patient is alert, oriented x 3, equal unlabored respirations, skin warm/dry/pink. 13:05 Reassessment: No changes from previously documented assessment. Patient and/or family ll1 updated on plan of care and expected duration. Pain level reassessed. Patient is alert, oriented x 3, equal unlabored respirations, skin warm/dry/pink. gait steady with walking boot. Vital Signs: 10:08 BP 142 / 94; Pulse 109; Resp 17; Temp 98.6; Pulse Ox 100% ; Weight 102.97 kg; Height 5 ll1 ft. 3 in. (160.02 cm); Pain 9/10; 13:05 BP 138 / 98; Pulse 94; Resp 16; ll1 10:08 Body Mass Index 40.21 (102.97 kg, 160.02 cm) ll1 ED Course: 09:36 Patient arrived in ED. mr 10:04 Triage completed. ll1 10:04 Arm band placed on. ll1 10:15 Chandler Mckeon MD is Attending Physician. rn 11:42 XRAY Ankle LEFT 3 view In Process Unspecified. EDMS 13:06 Patient has correct armband on for positive identification. Cardiac monitoring not ll1 applicable on this patient. 13:06 No provider procedures requiring assistance completed. Patient did not have IV access ll1 during this emergency room visit. Administered Medications: No medications were administered Outcome: 13:03 Discharge ordered by . rn 13:06 Patient left the ED. ll1 13:06 Discharged to home ambulatory. ll1 13:06 Condition: stable 13:06 Discharge instructions given to patient, Instructed on discharge instructions, follow up and referral plans. Demonstrated understanding of instructions, follow-up care. Signatures: Dispatcher [employer] Latoya Wilson, MD CELIA Arteaga rn Jose Enrique, CADE Win RN ll1
[2021-10-18 13:11] VITALS: BP 142/94; TEMP 98.6; O2SAT 100
== END 2021-10-18 13:06 | disposition home or self-care (01) ==
LOC: ER 09:33
DX: S93.402A Sprain of unspecified ligament of left ankle, initial encounter (principal)
CPT/HCPCS: 99283